=== PATIENT | male | born 1945 ===

== ENCOUNTER 2020-07-10 07:18 | Outpatient (CLI) | payer OTHER ==
--- NOTE | 2020-07-10 11:20 | ULT ---
ULTRASOUND RETROPERITONEUM LIMTED: (ABDOMINAL AORTA) DATE: 07/10/2020. HISTORY: A 74-year-old male for abdominal aortic aneurysm screening. FINDINGS: The caliber of the abdominal aorta is as follows (in cm): Proximal: 2.5 x 2.5 cm. Mid: 2 x 2 cm. Distal: 2 x 1.5 cm. IMPRESSION: No abdominal aortic aneurysm. CARLO Tam POS: JIN
== END 2020-07-10 07:19 | disposition home or self-care (01) ==
LOC: BICULT 07:18
DX: Z13.6 Encounter for screening for cardiovascular disorders (principal)
CPT/HCPCS: 76775